=== PATIENT | male | born 1965 | race Two or more races ===

== ENCOUNTER 2020-03-16 08:04 | Day surgery (SDC) | payer OTHER | END 2020-03-16 11:49 | disposition home or self-care (01) | LOC: AMB-ENDOS 08:04 → ADM 13:30 → AMB-ENDOS 13:30 | PROVIDERS: ATTEND Colon & Rectal Surgery | DX: D12.0 Benign neoplasm of cecum (principal); D12.4 Benign neoplasm of descending colon; K64.1 Second degree hemorrhoids; Z12.11 Encounter for screening for malignant neoplasm of colon ==